=== PATIENT | female | born 1995 | race Caucasian/White ===

== ENCOUNTER 2021-07-03 10:41 | Inpatient (IN) ==
[2021-07-03] MEDS ORDERED: Naloxone 0.4 MG/ML INJ IVP PRN (15:57)
[2021-07-03] MEDS ORDERED: Melatonin 3 MG TABLET PO PRN (15:57)
[2021-07-03] MEDS ORDERED: MOM Conc 10 ML UD.LIQ PO PRN (15:57)
[2021-07-03] MEDS ORDERED: 0.9 % Sodium Chloride 1,000 ML IVC SCH (16:15)
[2021-07-03 17:56] LABS: Basophils % 0.1 %; Hematocrit 39.7 % (35.3-44.9); Hemoglobin 13.1 g/dL (11.5-15.4); Immature Granulocytes % 0.4 % (0-4); Lymphocytes # 1.3 K/mcL (0.6-4.6); Mean Corpuscular Hemoglobin 29.4 pg (28.0-33.3); Mean Platelet Volume 11.5 fL (9.4-12.4); Monocytes # 0.7 K/mcL (0.0-1.3); Monocytes % 6.6 %; Neutrophils # 8.3 K/mcL (1.6-8.9); Platelet Count 175 K/mcL (140-400); Red Blood Count 4.46 M/mcL (3.82-4.97); Segmented Neutrophils % 79.9 %; White Blood Count 10.3 K/mcL (4.3-11.1)
[2021-07-03] MEDS: Ampicillin/Sulbactam 1,500 MG in 0.9 % Sodium Chloride Mini Bag 100 ML IVPB SCH (18:01)
[2021-07-03] MEDS: 0.9 % Sodium Chloride 1,000 ML IVC SCH (18:01)
[2021-07-03 18:05] LABS: INR 1.4; Prothrombin Time 15.9 Seconds (9.4-12.1)
[2021-07-03 18:08] LABS: Activated Partial Thrombo Time 33.1 Seconds (26.0-36.0)
[2021-07-03 18:10] LABS: Alanine Aminotransferase 23 Units/L (7-52); Albumin 4.4 g/dL (3.5-5.7); Albumin/Globulin Ratio 1.6 (1.1-2.2); Alkaline Phosphatase 26 Units/L (34-104); Aspartate Amino Transferase 63 Units/L (13-39); BUN/Creatinine Ratio 21 (6-26); Blood Urea Nitrogen 15 mg/dL (6-20); C-Reactive Protein < 5 mg/L (Less than 10); Calcium 9.2 mg/dL (8.6-10.3); Carbon Dioxide 18 mEq/L (23-29); Chloride 114 mEq/L (98-107); Globulin 2.7 g/dL (2.4-3.5); Glucose 80 mg/dL (70-105); Magnesium 1.9 mg/dL (1.6-2.6); Osmolality,Calculated 302 (280-300); Phosphorous 2.5 mg/dL (2.7-4.5); Sodium 146 mEq/L (136-145); Total Protein 7.1 g/dL (6.4-8.9); eGFR For African Americans > 60 (> 60); eGFR For Non-African Americans > 60 (> 60)
[2021-07-03 18:17] LABS: Troponin I 9.26 ng/mL (< 0.04)
[2021-07-03] MEDS ORDERED: Perflutren Lipid Microsphere 1.3 ML in 0.9 % Sodium Chloride 8.7 ML IVP PRN (18:26)
[2021-07-03 18:38] LABS: Ferritin 181 ng/mL (10-120)
[2021-07-03 18:51] LABS: Creatine Kinase 1088 Units/L (30-223)
[2021-07-03] MEDS: Aspirin 81 MG TAB.CHEW PO SCH (20:26)
[2021-07-03 21:09] LABS: Bilirubin,Urine Negative (Negative); Blood,Urine Small (Negative); Clarity,Urine Clear (Clear); Color,Urine Light-Yellow (Yellow); Glucose,Urine (UA) Normal (Normal); Ketones,Urine >150 mg/dL (Negative); Leukocyte Esterase,Urine Negative (Negative); Nitrite,Urine Negative (Negative); Protein,Urine 30 mg/dL (Neg-Trace); Specific Gravity,Urine 1.029 (1.010-1.025); Squamous Epithelial Cell,Urine Few per hpf (None-Few); Urobilinogen,Urine Normal (Normal)
[2021-07-03] MEDS: *HR* Promethazine 25 MG/ML VIAL IM PRN (21:24)
[2021-07-03] MEDS ORDERED: *HR* LORazepam 2 MG/ML VIAL IVP PRN (22:24)
[2021-07-03] MEDS: *HR* LORazepam 2 MG/ML VIAL IVP PRN (22:51)
[2021-07-03] MEDS: *HR* Metoprolol 5 MG/5 ML VIAL IVP SCH (23:11)
[2021-07-04] MEDS: *HR* LORazepam 2 MG/ML VIAL IVP PRN ×3 (00:15→06:18)
[2021-07-04 00:47] LABS: INR 1.5; Prothrombin Time 16.8 Seconds (9.4-12.1)
[2021-07-04 00:50] LABS: Activated Partial Thrombo Time 30.2 Seconds (26.0-36.0)
[2021-07-04] MEDS: Ampicillin/Sulbactam 1,500 MG in 0.9 % Sodium Chloride Mini Bag 100 ML IVPB SCH ×5 (00:51→23:49)
[2021-07-04 00:56] LABS: Hematocrit 38.2 % (35.3-44.9); Hemoglobin 12.6 g/dL (11.5-15.4); Mean Corpuscular Hemoglobin 29.5 pg (28.0-33.3); Mean Corpuscular Volume 89.5 fL (83.0-100.0); Mean Platelet Volume 11.7 fL (9.4-12.4); Platelet Count 151 K/mcL (140-400); Red Blood Count 4.27 M/mcL (3.82-4.97); White Blood Count 9.8 K/mcL (4.3-11.1)
[2021-07-04 01:02] LABS: Troponin I 7.35 ng/mL (< 0.04)
[2021-07-04] MEDS ORDERED: Dextrose Gel 15 GM/37.5 ML TUBE PO PRN ×2 (02:28)
[2021-07-04] MEDS ORDERED: D5% in Water 1,000 ML IVC PRN (02:28)
[2021-07-04] MEDS ORDERED: *HR* Dextrose 50 % in Water (Syg) 50 ML SYRINGE ONE (02:30)
[2021-07-04] MEDS: *HR* Dextrose 50 % in Water (Syg) 50 ML SYRINGE IVP PRN ×2 (02:34→06:52)
[2021-07-04 03:22] LABS: BUN/Creatinine Ratio 22 (6-26); Blood Urea Nitrogen 14 mg/dL (6-20); Calcium 8.8 mg/dL (8.6-10.3); Carbon Dioxide 13 mEq/L (23-29); Chloride 116 mEq/L (98-107); Glucose 80 mg/dL (70-105); Osmolality,Calculated 291 (280-300); Potassium 3.5 mEq/L (3.5-5.1); Sodium 141 mEq/L (136-145); eGFR For African Americans > 60 (> 60); eGFR For Non-African Americans > 60 (> 60)
[2021-07-04] MEDS: 0.9 % Sodium Chloride 1,000 ML IVC SCH (04:24)
[2021-07-04] MEDS: *HR* Metoprolol 5 MG/5 ML VIAL IVP SCH ×4 (05:56→23:48)
[2021-07-04 06:54] LABS: Troponin I 5.54 ng/mL (< 0.04)
[2021-07-04] MEDS: Aspirin 81 MG TAB.CHEW PO SCH (10:05)
[2021-07-04] MEDS: Cholecalciferol (D-3) 1,000 UNIT (25MCG) TABLET PO SCH (10:06)
[2021-07-04] MEDS: Folic Acid 1 MG in 0.9 % Sodium Chloride 50 ML IVPB SCH (10:12)
[2021-07-04] MEDS: Thiamine (B-1) 200 MG in 0.9 % Sodium Chloride 50 ML IVPB SCH (11:29)
[2021-07-04] MEDS: D5% in 0.45% NACL w KCl 20 MEQ/1,000 ML MLS IVC SCH (14:39)
[2021-07-04] MEDS: *HR* Promethazine 25 MG/ML VIAL IM PRN (19:42)
[2021-07-05] MEDS ORDERED: Acetaminophen IV 500 MG/50 ML BAG IVPB ONE (00:04)
[2021-07-05] MEDS: *HR* LORazepam 2 MG/ML VIAL IVP PRN ×4 (00:34→13:55)
[2021-07-05] MEDS: D5% in 0.45% NACL w KCl 20 MEQ/1,000 ML MLS IVC SCH ×5 (01:18→22:08)
[2021-07-05] MEDS: *HR* Promethazine 25 MG/ML VIAL IM PRN ×3 (03:42→21:04)
[2021-07-05] MEDS: *HR* Metoprolol 5 MG/5 ML VIAL IVP SCH ×4 (05:21→23:53)
[2021-07-05] MEDS: Ampicillin/Sulbactam 1,500 MG in 0.9 % Sodium Chloride Mini Bag 100 ML IVPB SCH ×4 (05:49→23:52)
[2021-07-05 06:20] LABS: Hemoglobin 13.6 g/dL (11.5-15.4); Mean Corpuscular Hemoglobin 29.7 pg (28.0-33.3); Mean Corpuscular Volume 87.3 fL (83.0-100.0); Mean Platelet Volume 11.9 fL (9.4-12.4); Platelet Count 152 K/mcL (140-400); Red Blood Count 4.58 M/mcL (3.82-4.97); Red Cell Distribution Width 12.5 % (11.5-14.5); White Blood Count 5.7 K/mcL (4.3-11.1)
[2021-07-05 07:09] LABS: Adenovirus F 40/41 PCR Not detected (Not detect); Astrovirus PCR Not detected (Not detect); C.difficile Toxin A/B Gene PCR Not detected (Not detect); Campylobacter by PCR Not detected (Not detect); Cryptosporidium by PCR Not detected (Not detect); Cyclospora cayetanensis PCR Not detected (Not detect); E. coli O157 by PCR Not detected (Not detect); Entamoeba histolytica PCR Not detected (Not detect); Enteroaggregative E.coli(EAEC) Not detected (Not detect); Enteropathogenic E.coli(EPEC) Not detected (Not detect); Enterotoxigenic E.coli (ETEC) Not detected (Not detect); Giardia lamblia PCR Not detected (Not detect); Norovirus GI/GII PCR Not detected (Not detect); Plesiomonas shigelloides PCR Not detected (Not detect); Rotavirus A PCR Not detected (Not detect); Salmonella PCR Not detected (Not detect); Sapovirus PCR Not detected (Not detect); Shig/EnteroinvasiveE coli EIEC Not detected (Not detect); Shigalike tox-prod E coli STEC Not detected (Not detect); Vibrio PCR Not detected (Not detect); Vibrio cholerae PCR Not detected (Not detect); Yersinia enterocolitica PCR Not detected (Not detect)
[2021-07-05] MEDS: Cholecalciferol (D-3) 1,000 UNIT (25MCG) TABLET PO SCH (07:43)
[2021-07-05] MEDS: Folic Acid 1 MG in 0.9 % Sodium Chloride 50 ML IVPB SCH (07:50)
[2021-07-05] MEDS: Thiamine (B-1) 200 MG in 0.9 % Sodium Chloride 50 ML IVPB SCH (07:51)
[2021-07-05 09:12] LABS: BUN/Creatinine Ratio 24 (6-26); Blood Urea Nitrogen 15 mg/dL (6-20); Calcium 8.7 mg/dL (8.6-10.3); Carbon Dioxide 25 mEq/L (23-29); Chloride 113 mEq/L (98-107); Glucose 109 mg/dL (70-105); Osmolality,Calculated 299 (280-300); Potassium 3.3 mEq/L (3.5-5.1); Sodium 144 mEq/L (136-145); eGFR For African Americans > 60 (> 60); eGFR For Non-African Americans > 60 (> 60)
[2021-07-05] MEDS ORDERED: *HR* Buprenorphine HCl 2 MG SUBLINGUAL TABLET SL SCH (21:00)
[2021-07-05] MEDS ORDERED: Ondansetron 4 MG/2 ML VIAL IVP ONE (23:02)
[2021-07-06] MEDS: *HR* Promethazine 25 MG/ML VIAL IM PRN ×3 (02:42→18:19)
[2021-07-06] MEDS: *HR* Metoprolol 5 MG/5 ML VIAL IVP SCH ×2 (05:32→13:08)
[2021-07-06] MEDS: D5% in 0.45% NACL w KCl 20 MEQ/1,000 ML MLS IVC SCH ×3 (05:32→17:53)
[2021-07-06] MEDS: Ampicillin/Sulbactam 1,500 MG in 0.9 % Sodium Chloride Mini Bag 100 ML IVPB SCH ×4 (05:33→23:49)
[2021-07-06 06:31] LABS: Hemoglobin 11.8 g/dL (11.5-15.4); Immature Platelets 7.9 % (1.1-6.1); Mean Corpuscular HGB Conc 33.7 g/dL (31.6-35.5); Mean Corpuscular Hemoglobin 29.8 pg (28.0-33.3); Mean Corpuscular Volume 88.4 fL (83.0-100.0); Mean Platelet Volume 11.8 fL (9.4-12.4); Red Blood Count 3.96 M/mcL (3.82-4.97); Red Cell Distribution Width 12.3 % (11.5-14.5)
[2021-07-06 08:51] LABS: Calcium Oxalate Crystals,Urine Present per hpf; Mucus,Urine Few per lpf (None-Few); Squamous Epithelial Cell,Urine Few per hpf (None-Few)
[2021-07-06 08:54] LABS: Bilirubin,Urine Negative (Negative); Blood,Urine Negative (Negative); Clarity,Urine Clear (Clear); Color,Urine Light-Yellow (Yellow); Glucose,Urine (UA) Normal (Normal); Ketones,Urine 10 mg/dL (Negative); Leukocyte Esterase,Urine Negative (Negative); Nitrite,Urine Negative (Negative); Protein,Urine Trace mg/dL (Neg-Trace); Specific Gravity,Urine > 1.030 (1.010-1.025); Urobilinogen,Urine Normal (Normal)
[2021-07-06] MEDS ORDERED: *HR* Buprenorphine HCl 2 MG SUBLINGUAL TABLET SL SCH (09:00)
[2021-07-06] MEDS: Cholecalciferol (D-3) 1,000 UNIT (25MCG) TABLET PO SCH (09:19)
[2021-07-06] MEDS: Folic Acid 1 MG in 0.9 % Sodium Chloride 50 ML IVPB SCH (09:19)
[2021-07-06] MEDS ORDERED: *HR* Buprenorphine HCl 2 MG SUBLINGUAL TABLET SL ONE (09:24)
[2021-07-06] MEDS: Thiamine (B-1) 200 MG in 0.9 % Sodium Chloride 50 ML IVPB SCH (09:24)
[2021-07-06 09:46] LABS: Creatine Kinase 3474 Units/L (30-223)
[2021-07-06] MEDS: Aspirin 81 MG TAB.CHEW PO SCH (09:55)
[2021-07-06 12:04] LABS: BUN/Creatinine Ratio 26 (6-26); Blood Urea Nitrogen 16 mg/dL (6-20); Calcium 8.1 mg/dL (8.6-10.3); Carbon Dioxide 25 mEq/L (23-29); Chloride 111 mEq/L (98-107); Glucose 105 mg/dL (70-105); Osmolality,Calculated 296 (280-300); Potassium 3.5 mEq/L (3.5-5.1); Sodium 142 mEq/L (136-145); eGFR For African Americans > 60 (> 60); eGFR For Non-African Americans > 60 (> 60)
[2021-07-06] MEDS ORDERED: Prochlorperazine 10 MG/2 ML VIAL IM PRN (13:32)
[2021-07-06] MEDS ORDERED: Prochlorperazine 10 MG/2 ML VIAL IM ONE (13:45)
[2021-07-06] MEDS: *HR* Buprenorphine HCl 2 MG SUBLINGUAL TABLET SL SCH (17:53)
[2021-07-07] MEDS ORDERED: *HR* LORazepam 2 MG/ML VIAL IVP ONE (00:54)
[2021-07-07 01:05] LABS: Hematocrit 34.9 % (35.3-44.9); Hemoglobin 11.9 g/dL (11.5-15.4); Immature Platelets 9.3 % (1.1-6.1); Mean Corpuscular HGB Conc 34.1 g/dL (31.6-35.5); Mean Corpuscular Hemoglobin 29.7 pg (28.0-33.3); Mean Platelet Volume 11.7 fL (9.4-12.4); Red Blood Count 4.01 M/mcL (3.82-4.97); Red Cell Distribution Width 12.4 % (11.5-14.5); White Blood Count 2.9 K/mcL (4.3-11.1)
[2021-07-07 01:32] LABS: BUN/Creatinine Ratio 9 (6-26); Blood Urea Nitrogen 5 mg/dL (6-20); Calcium 8.5 mg/dL (8.6-10.3); Carbon Dioxide 25 mEq/L (23-29); Chloride 107 mEq/L (98-107); Creatine Kinase 2899 Units/L (30-223); Glucose 97 mg/dL (70-105); Osmolality,Calculated 285 (280-300); Potassium 3.2 mEq/L (3.5-5.1); Sodium 139 mEq/L (136-145); eGFR For African Americans > 60 (> 60); eGFR For Non-African Americans > 60 (> 60)
[2021-07-07] MEDS: D5% in 0.45% NACL w KCl 20 MEQ/1,000 ML MLS IVC SCH ×3 (02:55→20:17)
[2021-07-07] MEDS: *HR* Promethazine 25 MG/ML VIAL IM PRN (04:39)
[2021-07-07] MEDS: Ampicillin/Sulbactam 1,500 MG in 0.9 % Sodium Chloride Mini Bag 100 ML IVPB SCH ×2 (05:59→12:56)
[2021-07-07] MEDS: Aspirin 81 MG TAB.CHEW PO SCH (07:55)
[2021-07-07] MEDS: Cholecalciferol (D-3) 1,000 UNIT (25MCG) TABLET PO SCH (07:55)
[2021-07-07] MEDS: *HR* Buprenorphine HCl 2 MG SUBLINGUAL TABLET SL SCH ×2 (07:56→16:29)
[2021-07-07] MEDS ORDERED: Ondansetron ODT 4 MG TAB.RAPDIS SL PRN (14:41)
[2021-07-07 15:55] LABS: Hepatitis B Surface Antigen Nonreactive (Nonreactive)
[2021-07-07 16:23] LABS: Hepatitis C Virus Antibody Nonreactive (Nonreactive)
[2021-07-07 16:24] LABS: Hepatitis B Core IgM Nonreactive (Nonreactive)
[2021-07-07 16:26] LABS: Hepatitis A Antibody IgM Nonreactive (Nonreactive)
[2021-07-07] MEDS: Ondansetron ODT 4 MG TAB.RAPDIS SL PRN (16:29)
[2021-07-07 17:09] LABS: BUN/Creatinine Ratio 7 (6-26); Blood Urea Nitrogen 4 mg/dL (6-20); Calcium 9.2 mg/dL (8.6-10.3); Carbon Dioxide 31 mEq/L (23-29); Chloride 108 mEq/L (98-107); Glucose 99 mg/dL (70-105); Osmolality,Calculated 303 (280-300); Potassium 3.6 mEq/L (3.5-5.1); Sodium 148 mEq/L (136-145); eGFR For African Americans > 60 (> 60); eGFR For Non-African Americans > 60 (> 60)
[2021-07-07 17:46] LABS: Basophils % 0.3 %; Eosinophils % 0.9 %; Hematocrit 36.5 % (35.3-44.9); Hemoglobin 12.6 g/dL (11.5-15.4); Immature Granulocytes % 1.2 % (0-4); Lymphocytes # 1.3 K/mcL (0.6-4.6); Lymphocytes % 40.2 %; Mean Corpuscular HGB Conc 34.5 g/dL (31.6-35.5); Mean Corpuscular Hemoglobin 29.4 pg (28.0-33.3); Mean Corpuscular Volume 85.3 fL (83.0-100.0); Mean Platelet Volume 12.3 fL (9.4-12.4); Monocytes # 0.5 K/mcL (0.0-1.3); Monocytes % 15.3 %; Neutrophils # 1.4 K/mcL (1.6-8.9); Platelet Count 127 K/mcL (140-400); Red Blood Count 4.28 M/mcL (3.82-4.97); Red Cell Distribution Width 12.4 % (11.5-14.5); Segmented Neutrophils % 42.1 %; White Blood Count 3.3 K/mcL (4.3-11.1)
[2021-07-08] MEDS: *HR* Promethazine 25 MG/ML VIAL IM PRN ×2 (00:43→11:09)
[2021-07-08] MEDS: *HR* LORazepam 2 MG/ML VIAL IVP PRN (02:13)
[2021-07-08] MEDS: D5% in 0.45% NACL w KCl 20 MEQ/1,000 ML MLS IVC SCH ×2 (03:04→10:56)
[2021-07-08] MEDS: *HR* Buprenorphine HCl 2 MG SUBLINGUAL TABLET SL SCH ×2 (07:51→17:06)
[2021-07-08] MEDS: Aspirin 81 MG TAB.CHEW PO SCH (07:51)
[2021-07-08] MEDS: Cholecalciferol (D-3) 1,000 UNIT (25MCG) TABLET PO SCH (07:51)
[2021-07-08 08:00] LABS: BUN/Creatinine Ratio 9 (6-26); Blood Urea Nitrogen 5 mg/dL (6-20); Carbon Dioxide 27 mEq/L (23-29); Chloride 110 mEq/L (98-107); Glucose 102 mg/dL (70-105); Osmolality,Calculated 297 (280-300); Potassium 4.4 mEq/L (3.5-5.1); Sodium 145 mEq/L (136-145); eGFR For African Americans > 60 (> 60); eGFR For Non-African Americans > 60 (> 60)
[2021-07-08] MEDS: Ondansetron ODT 4 MG TAB.RAPDIS SL PRN ×2 (08:06→14:05)
[2021-07-08 08:18] LABS: Hemoglobin 13.4 g/dL (11.5-15.4); Immature Platelets 12.3 % (1.1-6.1); Mean Corpuscular HGB Conc 35.3 g/dL (31.6-35.5); Mean Corpuscular Hemoglobin 29.5 pg (28.0-33.3); Mean Corpuscular Volume 83.5 fL (83.0-100.0); Red Blood Count 4.55 M/mcL (3.82-4.97); Red Cell Distribution Width 12.2 % (11.5-14.5); White Blood Count 3.2 K/mcL (4.3-11.1)
[2021-07-08 10:11] VITALS: O2SAT 99
[2021-07-08 16:09] VITALS: BP 109/74; PULSE 96; TEMP 98.2
== END 2021-07-08 17:45 | disposition home or self-care (01) | DRG 871 ==
LOC: PREOBSVTOIN 11:42 → SUATTDRO 14:13 → 2NNU 14:13 → 3ANU 07-04 10:52
PROVIDERS: ADMIT Internal Medicine; ATTEND Internal Medicine